=== PATIENT | female | born 1950 | race Caucasian/White ===

== ENCOUNTER → 2016-06-19 | Outpatient (CLI) | payer OTHER | LOC: FIMAGING 09:36 | DX: Z12.31 Encounter for screening mammogram for malignant neoplasm of breast (principal) | CPT/HCPCS: G0202 ==

== ENCOUNTER → 2017-11-27 | Outpatient (CLI) | payer OTHER | LOC: FIMAGING 09:28 | PROVIDERS: ATTEND Family Medicine Sports Medicine | DX: Z12.31 Encounter for screening mammogram for malignant neoplasm of breast (principal) ==

== ENCOUNTER → 2017-12-13 | Outpatient (CLI) | payer OTHER | LOC: FIMAGING 09:11 | PROVIDERS: ATTEND Family Medicine Sports Medicine | DX: Z13.820 Encounter for screening for osteoporosis (principal); M85.89 Other specified disorders of bone density and structure, multiple sites; E28.39 Other primary ovarian failure; Z78.0 Asymptomatic menopausal state ==

== ENCOUNTER 2018-07-31 15:41 | Emergency (ER) | payer OTHER ==
[2018-07-31] MEDS ORDERED: TDAP ADULT 0.5 ML INJ (BOOSTRIX) IM ONE (16:34)
[2018-07-31] MEDS ORDERED: AMOXICILLIN/CLAVULANATE POT 875/125 MG TAB PO ONE (16:34)
--- NOTE | 2018-07-31 16:35 | EDPHY ---
H & P Time Seen by Provider: 07/31/18 16:30 HPI/ROS: CHIEF COMPLAINT: Dog bite right forearm HISTORY OF PRESENT ILLNESS: 68-year-old female with out-of-date tetanus sustained dog bite to her right dorsal distal forearm when her son's roommates domesticated dog bit her and said area. Occurred shortly prior to arrival. No paresthesia. No foreign body sensation. No underlying osseous discomfort. PHYSICAL EXAM (Prior to examination, patient consented to physical exam, hands were washed and my usual and customary physical exam procedures followed) 1) GENERAL: Well-developed, well-nourished, alert and oriented. Appears to be in no acute distress. 2) HEAD: Normocephalic 3) HEENT: Pupils equal, round, reactive to light bilaterally. 4) LUNGS: Breathing comfortably. 5) MUSCULOSKELETAL: Soft compartments. No evidence of infection. Normal coloration. No underlying osseous discomfort. 6) SKIN: Right dorsal distal forearm 2 discrete puncture wounds with 5 mm of superficial flap which is debrided by myself. 7) VASCULAR: pulses and cap refill present are brisk 8) NEUROLOGIC: Radial, ulnar, median nerve function intact with no deficits appreciated on exam DIFFERENTIAL DIAGNOSIS: in no particular order including but not limited to fracture, sprain, compartment syndrome Smoking Status: Former smoker Constitutional: Initial Vital Signs Temperature (C) 36.8 C 07/31/18 15:47 Heart Rate 58 L 07/31/18 15:47 Respiratory Rate 17 07/31/18 15:47 Blood Pressure 128/81 H 07/31/18 15:47 O2 Sat (%) 98 07/31/18 15:47 O2 Delivery Mode Room Air Allergies/Adverse Reactions: No Known Allergies Allergy (Verified 07/31/18 15:47) Home Medications: Medication Instructions Recorded Lisinopril 06/01/15 Amoxicillin/Clavulanate Pot 875 mg PO BID #10 tab 07/31/18 [Augmentin 875 mg tab] MDM/Departure - MDM ED Course/Re-evaluation: Patient's dog bite to the right dorsal distal forearm shows no signs of infection. This is a domesticated dog with up-to-date vaccinations. The patient is neurovascularly intact. She had the wound debrided by myself, cleaned, dressed with antibiotic ointment. Given my usual and customary wound precautions and instructions. Started on Augmentin. Feels comfortable being discharged. Care of patient under supervision of secondary supervising physician Dr Escoto . - Depart Disposition: Home, Routine, Self-Care Clinical Impression: Dog bite of right forearm Qualifiers: Encounter type: initial encounter Qualified Code(s): S51.851A - Open bite of right forearm, initial encounter; W54.0XXA - Bitten by dog, initial encounter; W54.0XXA - Bitten by dog, initial encounter Condition: Good Instructions: Animal Bite (ED) Additional Instructions: Return to the ER if you develop redness, swelling, discharge, warmth to the wound, red streaks going up your arm, or any other symptoms that concern you. Prescriptions: Amoxicillin/Clavulanate Pot [Augmentin 875 mg tab] 875 mg PO BID #10 tab Referrals: Juvenal Abbott MD [Primary Care Provider] - 1-2 days without fail
[2018-07-31 16:58] VITALS: BP 132/81
== END 2018-07-31 16:56 | disposition home or self-care (01) ==
PROC: 0HDDXZZ Extraction of Right Lower Arm Skin, External Approach (ICD-10-PCS; principal; 2018-07-31)
DX: S51.851A Open bite of right forearm, initial encounter (principal); Z23 Encounter for immunization; W54.0XXA Bitten by dog, initial encounter